=== PATIENT | male | born 1990 | race Caucasian/White ===

== ENCOUNTER 2017-01-19 11:23 | Outpatient (CLI) | payer BC ==
[~2017-01-19] VITALS: Ht 182.9 cm; Wt 99.8 kg
[~2017-01-19 11:23] MED LIST: HYDR-3720 PO
[2017-01-19] MEDS ORDERED: ZOLP10TA5 PO (13:58)
[2017-01-19] MEDS ORDERED: CARI350T PO (13:58)
== END 2017-01-19 14:04 ==
LOC: PREOP 11:23
PROVIDERS: ATTEND Pain Medicine Pain Medicine
DX: Z01.818 Encounter for other preprocedural examination (principal); M54.5 Low back pain; G89.29 Other chronic pain

== ENCOUNTER 2017-01-25 11:30 | Day surgery (SDC) | payer BC ==
[~2017-01-25] VITALS: Ht 182.9 cm; Wt 99.8 kg
[~2017-01-25 11:30] MED LIST changes: +CARI350T PO; +ZOLP10TA5 PO
[2017-01-25 11:50] VITALS: BP 142/92
[2017-01-25] MEDS ORDERED: ceFAZolin 1 GM/NS 50 ML IVPB IV ONE ×2 (12:00)
[2017-01-25] MEDS ORDERED: CATHETER FLUSH 10 ML SYR IV PRN (12:00)
[2017-01-25] MEDS ORDERED: LIDOCAINE 1% INJ 20 ML (XYLOCAINE) VIAL ONE (12:06)
--- NOTE | 2017-01-25 12:29 | Progress Note-Pre Operative ---
Pre-Operative Progress Note H&P Reviewed The H&P was reviewed, patient examined and no changes noted. Date H&P Reviewed: Jan 25, 2017 Time H&P Reviewed: 12:29 Pre-Operative Diagnosis: chronic pain syndrome, lumbago, degenerative disc disease lumbar JOSEPH FOFANA MD Jan 25, 2017 12:29 pm
[2017-01-25] MEDS ORDERED: PROPOFOL INJECTION 50 ML IV ONE ×2 (12:30→13:05)
[2017-01-25] MEDS ORDERED: fentaNYL INJECTION 100 MCG/2 ML AMP ONE (12:31)
[2017-01-25] MEDS ORDERED: MIDAZOLAM 2 MG/2 ML (VERSED) VIAL ONE (12:31)
[2017-01-25] MEDS ORDERED: LACTATED RINGERS 1,000 ML IV PRN (12:40)
[2017-01-25] MEDS ORDERED: LIDOCAINE PF 2% 10 ML (XYLOCAINE) AMP ONE (13:05)
[2017-01-25] MEDS ORDERED: LACTATED RINGERS 1,000 ML IV ONE (13:05)
[2017-01-25] MEDS ORDERED: fentaNYL INJECTION 100 MCG/2 ML AMP IVP PRN (13:45)
[2017-01-25] MEDS ORDERED: ONDANSETRON 4 MG/2 ML (SDV) Z0FRAN IVP PRN (13:45)
[2017-01-25] MEDS ORDERED: morphine INJ 10 MG/ML 1ML (SYR OR VIAL) IVP PRN (13:45)
--- NOTE | 2017-01-25 13:51 | Operative Report ---
Operative Report Date of Procedure/Surgery Jan 25, 2017 Surgeon (s) JOSEPH FOFANA MD Lining Vamper (s): none Post-Operative Diagnosis chronic pain syndrome, lumbago, degenerative disc disease lumbar Procedure Performed AP Film of Thoracolumbar Spine w/ fluoroscopy guidance and interpretation Placement of specialized epidural needle to the L2-3 inter space bilaterally Placement of linear lead with dual 8 electrodes to the T8-T9 area Intra-operative complex programming of lead taking 30 minutes. Anchoring the spinal cord stimulator lead to the skin Complex programming in recovery taking 30 minutes. Description of Procedure Anesthesia Type: MAC Estimated blood loss (mL): <5 ml Specimen(s) collected/removed none Packing: The patient is an established patient with the above known diagnosis. The patient understands the reason for the procedure along with the risks, benefits and alternatives available. The patient has had the opportunity to ask questions prior to the procedure, and the patient has given written, informed, consent to proceed with the procedure. Medical Necessity: This patient has chronic pain that has failed to respond to conservative measures as outlined in the original history and physical exam. Patient's symptoms include pain in the low back, hips and legs bilaterally. The goals of treatment are to 1) achieve optimal pain control, recognizing that a pain-free state may not be achievable; 2) minimize adverse outcomes; 3) enhance functional abilities, and physical and psychological well-being; and 4) enhance the quality of life for patients with chronic pain. Description of the Procedure After obtaining written informed consent patient. Patient was taken to the operating room. Pre-procedure blood pressure and pulse were stable and recorded in patients clinic chart. A formal time out was performed. Ancef 1 gm IV was given. The patient was placed in the prone position on operating room table. The patient was attached to a vital sign monitor, continuously monitoring saturation through pulse oximeter, pulse rate, and routine checks on the blood pressure as recorded in the anesthesia record. Moderate level sedation was then achieved by anesthesia as detailed in anesthesia record. A large portion of the dorsal cavity was scrubbed with a micro-antibacterial surgical solution. The patient was draped in typical sterile fashion. After confirmation of vertebral count through thorocolumbar films, the C-arm was used to help define the angle and access point for the epidural needle. Prior to needle placement, and after location of the access point, lidocaine 1% was infiltrated into the skin and deeper tissue area for localization prior to specialized epidural needle placement. After the lidocaine had taken effect, a Touhy needle size 14- guage was introduced and advanced at the level of L2-L3 on the right and left side. Once the loss of resistance was positive using a glass syringe, an 8 electrode linear lead was channeled through the epidural needle and guided carefully to the T8-T9 area. The same steps were followed to place an 8 electrode lead midline to the left of the first lead. This placement gave appropriate stimulation. Various program settings were worked through within the operating room, to ensure appropriate coverage with the stimulation. Minor adjustments were made as needed to develop excellent coverage. There was no evidence of paresthesia, heme or CSF. Once the coverage was optimal, the guide needle was removed from the insertion site. The leads then were anchored using the tapered anchor 2-0 silk. Sterile dressing applied using tegaderm, bacitracin ointment and gauze. The patient was then taken from the operating room via stretcher and placed in a recovery room. Once in the recovery room, the fine tune adjustments were made to the stimulation pattern. This additional programming was needed to give the patient optimal coverage during the trial. Post operatively the patient was monitored until stable. Following the procedure the patient's vital signs were stable. fluoro time are recorded in the patient chart. Findings of the Procedure no complications Allergies and Home Medications Allergies Coded Allergies: No Known Drug Allergies (Unverified , 06/02/12) Home Medications Carisoprodol 350 Mg Tablet, 350 MG PO HS, (Reported) Hydrocodone Bit/Acetaminophen 1 Each Tablet, 1 EACH PO Q8H, (Reported) Zolpidem Tartrate 10 Mg Tablet, 10 MG PO HS, (Reported) JOSEPH FOFANA MD Jan 25, 2017 13:51
--- NOTE | 2017-01-25 13:53 | Discharge Inst-Simple/Standard ---
Discharge Inst-Standard Patient Instructions/Follow Up Plan of Care/Instructions/FU: Call clinic for any fevers, chills or bleeding/drainage from surgical site. Do not remove the dressings. No showers or bathing for 7 days. Turn off the spinal cord stimulator when driving. Follow up in clinic on 01/30/17 at 10:00 am Call the spinal cord stimulator self pay representative or pain clinic for any questions or concerns. Activity as Tolerated: Yes Discharge Diet: No Restrictions JOSEPH FOFANA MD Jan 25, 2017 13:53
[2017-01-25 14:15] VITALS: BP 147/92
[2017-01-25 14:45] VITALS: BP 135/88
--- NOTE | 2017-01-25 16:09 | Diagnostic Imaging Report ---
EXAMINATION: Intraoperative thoracic spine views. INDICATION: Guidance for placement of spinal cord stimulator performed by Dr. Tom. FLUOROSCOPY TIME: 3 minutes and 22 seconds. IMPRESSION: The provided images demonstrate epidural leads inserted into the lower thoracic spine. Dictated by: Dictated on workstation # [id number]
== END 2017-01-25 14:55 | disposition home or self-care (01) ==
LOC: SDC 11:30
PROVIDERS: ATTEND Pain Medicine Pain Medicine
DX: M51.36 Other intervertebral disc degeneration, lumbar region (principal); G89.4 Chronic pain syndrome; Z11.2 Encounter for screening for other bacterial diseases
CPT/HCPCS: 87081

== ENCOUNTER → 2017-10-03 | Outpatient (CLI) | payer BC ==
--- NOTE | 2017-10-03 11:41 | Diagnostic Imaging Report ---
INDICATION: Back pain. COMPARISON: None. FINDINGS: Three views of the lumbar spine are obtained. There is moderate levocurvature of the thoracolumbar spine. Alignment is otherwise unremarkable. There is no acute fracture or osseous destructive process. Vertebral body heights appear maintained. There is minimal disc space narrowing at L4-L5 and L5-S1. Pedicles appear intact. The sacroiliac joints appear unremarkable. There is a battery pack over the left pelvis with the spinal electrodes extending to about the T9 level. IMPRESSION: Levocurvature of the thoracolumbar spine. Mild degenerative disc space narrowing in the lower lumbar spine as described. No additional abnormality is seen. Dictated by: Dictated on workstation # [id number]
== END ==
LOC: RAD 09:46
PROVIDERS: ATTEND Nurse Practitioner Family
DX: M51.37 Other intervertebral disc degeneration, lumbosacral region (principal); M54.42 Lumbago with sciatica, left side; M54.41 Lumbago with sciatica, right side; G89.29 Other chronic pain
CPT/HCPCS: 72100